=== PATIENT | male | born 1945 | race Caucasian/White ===

== ENCOUNTER 2016-04-28 14:28 | Emergency (ER) | payer MEDICARE, OTHER ==
[2016-04-28] MEDS ORDERED: IPRATROPIUM BROMIDE NEBS 0.5 MG/2.5 ML VIAL NEB ONE (15:11)
[2016-04-28] MEDS ORDERED: LEVALBUTEROL NEBS 1.25 MG/3 ML VIAL NEB ONE (15:11)
[2016-04-28 15:19] VITALS: TEMP 97.1
[2016-04-28] MEDS ORDERED: FUROSEMIDE INJ 40 MG/4 ML VIAL IV ONE (15:28)
--- NOTE | 2016-04-28 15:55 | RAD ---
EXAM DESCRIPTION: XR CHEST 1 VIEW CLINICAL HISTORY: sob COMPARISON: None available TECHNIQUE: AP portable chest FINDINGS: The patient is post sternotomy. Mild cardiomegaly is evident. Diffuse interstitial lung disease is observed. I suspect a portion of what is seen is chronic in nature. There may be superimposed acute parenchymal pathology. Direct comparison with an old film would prove useful. No evidence of a pleural effusion is seen. IMPRESSION: Diffuse interstitial lung disease is observed. Some of what is seen may be chronic in nature. Direct comparison with an old film would prove useful to evaluate for acute parenchymal pathology. Electronically signed by: Jacob Faye MD 04/28/2016 15:54
[2016-04-28] MEDS ORDERED: NITROGLYCERIN/D5W IV 250 ML IVS ONE (16:24)
[2016-04-28] MEDS ORDERED: ASPIRIN TABLET 325 MG TAB PO ONE (16:30)
--- NOTE | 2016-04-28 16:38 | ED.PDOC ---
History of Present Illness - General Chief Complaint: Respiratory Problem Stated Complaint: Shortness of breath for the past two weeks Time Seen by Provider: 04/28/16 14:52 Source: patient Exam Limitations: no limitations - History of Present Illness Initial Comments: the patient is a 70-year-old male presenting to emergency room secondary to progressive shortness of breath for the last 2 weeks. He has had a mildly productive sputum. He has not noticed any lower extremity swelling but there is possibly some increased abdominal girth. He does get more short of breath with lying back. He has felt no chest pain or palpitations. No syncope but he has had a couple of episodes of near syncope. No focal neurological changes. No vomiting. No diarrhea. He does have a significant cardiac history and has had a 3 vessel CABG in the past. He is followed by Dr. Castro. When comparing the EKG today to EKG from 2013, he has persistent right bundle branch block and left anterior fascicular blocks but both are a little more widened than they used to be. Additionally he has ventricular bigeminy. The patient is in significant respiratory distress upon arrival.upon additional questioning, he feels as if his Lasix is not diuresing him as well as it used to. Timing/Duration: 1 week Severity: severe Improving Factors: immobilization Worsening Factors: movement Associated Symptoms: cough, malaise, shortness of breath, weakness Allergies/Adverse Reactions: Allergies NO KNOWN ALLERGY Allergy (Verified 04/28/16 14:57) Review of Systems - Review of Systems Constitutional: States: malaise, weakness EENTM: States: no symptoms reported Respiratory: States: cough, orthopnea, short of breath, wheezing Cardiology: States: no symptoms reported Gastrointestinal/Abdominal: States: no symptoms reported Genitourinary: States: no symptoms reported Musculoskeletal: States: no symptoms reported Skin: States: no symptoms reported Neurological: States: weakness - generalized All other Systems: No Change from Baseline Past Medical History (General) - Patient Medical History Hx Stroke: No Hx Asthma: No Hx of COPD: Yes Hx Cardiac Disorders: Yes - History of CABG Hx Congestive Heart Failure: No Hx Hypertension: Yes Hx Diabetes: No Hx MRSA: No Surgical History: coronary bypass surgery - Vaccination History Hx Influenza Vaccination: Yes Hx Pneumococcal Vaccination: Yes - Social History Hx Tobacco Use: Yes Hx Chewing Tobacco Use: No Hx Alcohol Use: Yes - 2 drinks every evening Physical Exam - Physical Exam General Appearance: Alert, Obvious distress Eye Exam: bilateral normal Ears, Nose, Throat: normal ENT inspection, normal pharynx Neck: non-tender, full range of motion, supple Respiratory: chest non-tender, respiratory distress, decreased breath sounds, accessory muscle use, rales, rhonchi, wheezing - mild and scattered Cardiovascular/Chest: normal peripheral pulses, no edema, other - telemetry monitoring shows bigeminy. Pulses consistent with one strong pulse beat followed by one very weak 1. 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 His appears to be due to a CHF exacerbation likely related to a poorly perfusing arrhythmia in the form of ventricular bigeminy. The patient has been given a dose of IV Lasix and has started to diurese. His respiratory distress has been aided greatly by the addition of oxygen. He is currently on 50% FiO2. He is also receiving a low-flow nitroglycerin drip to help reduce hypertension. The patient is being transferred for higher level of care and cardiac evaluation. He is a patient of Dr. Liu. Critical care time spent on the patient 50 minutes excluding other billable procedures. - Results/Orders Results/Orders: Vital Signs - 24 hr 04/28/16 04/28/16 15:00 15:10 Temperature 97.1 F L Pulse Rate 54 L 93 H Pulse Rate [ 54 L Apical] Respiratory 24 20 Rate Blood Pressure 143/88 [Right Arm] O2 Sat by Pulse 72 L 93 L Oximetry 04/28/16 14:53 Telemetry .CONTINUOUS INFLUENZA A & B ANTIGEN negative 04/28/16 14:58 ABG [Arterial Blood Gas] Stat on 40% FiO2, the PaCO2 is 44 and the PaO2 is 67. PH is 7.4. 04/28/16 16:15 EKG STAT EKG shows ventricular bigeminy and widening of the QRS complexes on his normal beats consistent with his bundle branch blocks. In comparison with EKG from [address] there are no acute ST segment changes in comparison. 04/28/16 16:24 Nitroglycerin/D5w IV 250 ml IVS ONCE 04/29/16 09:00 Oxygen Daily Laboratory Results - last 24 hr 04/28/16 14:55 WBC 10.4 RBC 5.20 Hgb 15.9 Hct 47.4 MCV 91.2 MCH 30.7 MCHC 33.6 RDW 15.1 H Plt Count 239 MPV 7.6 Absolute Neuts (auto) 7.30 H Absolute Lymphs (auto) 1.90 Absolute Monos (auto) 1.10 H Absolute Eos (auto) 0.10 Absolute Basos (auto) 0.10 Neutrophils % 69.7 Lymphocytes % 18.5 L Monocytes % 10.5 H Eosinophils % 0.6 L Basophils % 0.7 PT 13.6 H INR 1.210 PTT (SP) 34.7 D-Dimer, Quantitative < 230 Sodium 136 Potassium 3.5 L Chloride 102 Carbon Dioxide 28 Anion Gap 9.5 L BUN 21 H Creatinine 0.81 BUN/Creatinine Ratio 25.9 H Random Glucose 125 H Serum Osmolality 276.4 Calcium 9.2 Magnesium 2.1 Total Bilirubin 4.0 H* AST 21 ALT 14 Alkaline Phosphatase 94 Creatine Kinase 59 CK-MB (CK-2) 3.9 CK-MB (CK-2) % Not Reportable Troponin I 0.05 B-Natriuretic Peptide 1630.0 H* Serum Total Protein 6.9 Albumin 4.0 Globulin 2.9 Albumin/Globulin Ratio 1.4 TSH 2.69 chest x-ray is consistent with congestive heart failure. No overt pneumonia. Departure - Departure Clinical Impression: Congestive heart failure Qualifiers: Congestive heart failure type: unspecified congestive heart failure type Congestive heart failure chronicity: acute Qualifier Code: (I50.9) Heart failure , unspecified Disposition: Transfer to Hospital Departure Forms: ED Discharge - Pt. Copy, Patient Portal Self Enrollment Transfer to Outside Facility - Transfer Information Accepting Provider:: dr villatoro Accepting Facility: [facility] [place] Reason for Transfer: required specialist not available
[2016-04-28] MEDS ORDERED: SODIUM CHLORIDE 0.9% 500ML 500 ML ONE (16:53)
[2016-04-28] MEDS ORDERED: SODIUM CHLORIDE 0.9% 500ML 500 ML IVS PRN (16:54)
[2016-04-28 19:26] VITALS: O2SAT 93
[2016-04-28 19:32] VITALS: BP 147/74
== END 2016-04-28 17:52 | disposition short-term general hospital (02) ==
LOC: ER 14:28
DX: I11.0 Hypertensive heart disease with heart failure (principal); I50.9 Heart failure, unspecified; I45.2 Bifascicular block; Z95.1 Presence of aortocoronary bypass graft; J44.9 Chronic obstructive pulmonary disease, unspecified; Z87.891 Personal history of nicotine dependence
CPT/HCPCS: 36415; 36600; 71010; 80053; 82550; 82553; 82803; 82805; 83735; 83880; 84443; 84484; 85025; 85379; 85610; 85730; 93005; 94640; J1940; J7040; J7614

== ENCOUNTER → 2016-05-12 | Outpatient (CLI) | payer MEDICARE, OTHER | END | disposition home or self-care (01) | LOC: LAB.O 14:20 | PROVIDERS: ATTEND Internal Medicine Interventional Cardiology | DX: I42.9 Cardiomyopathy, unspecified (principal) ==

== ENCOUNTER 2016-07-20 09:21 | Inpatient (IN) | payer MEDICARE, OTHER ==
[2016-07-20] MEDS ORDERED: ACETAMINOPHEN 325 MG TAB PO ONE (09:47)
[2016-07-20] MEDS ORDERED: CEFEPIME 2 GM in SODIUM CHL 0.9% 50ML MIN-BAG+ 50 ML IVPB ONE (09:47)
[2016-07-20] MEDS ORDERED: IPRATROPIUM/ALBUTEROL 3 ML VIAL NEB ONE (09:48)
[2016-07-20] MEDS ORDERED: SODIUM CHL 0.9% 50ML MIN-BAG+ 50 ML IVPB ONE ×2 (09:56→20:25)
[2016-07-20] MEDS ORDERED: CEFEPIME 2 GM VIAL IVPB ONE ×2 (09:56→20:25)
--- NOTE | 2016-07-20 10:14 | RAD ---
EXAM DESCRIPTION: Chest,2 Views CLINICAL HISTORY: sob, productive sputum, copd, chf COMPARISON: April 28, 2016 FINDINGS: Again seen are postoperative changes in the mediastinum. The heart is at the upper limits of normal size. There is a small left-sided pleural effusion with a questionable tiny right-sided effusion. The bronchovascular markings are indistinct. Interstitial and patchy alveolar opacity is noted in the left lung base. There are degenerative changes in the thoracic spine at several levels. No vertebral body fracture or subluxation. No pneumothorax. IMPRESSION: Moderate CHF including small left-sided and possible tiny right-sided pleural effusions. Infection is considered less likely. Electronically signed by: Abelardo Lawler MD 07/20/2016 10:14 AM CDT
--- NOTE | 2016-07-20 10:59 | ED.PDOC ---
History of Present Illness - General Chief Complaint: Respiratory Problem Stated Complaint: cough, shortness of breath Time Seen by Provider: 07/20/16 09:30 Source: patient Exam Limitations: no limitations - History of Present Illness Initial Comments: the patient is a 71-year-old male presenting to the emergency room secondary to a cough with productive sputum along with fevers and chills and some increasing shortness of breath over the last 72 hours. The patient does have a history of congestive heart failure and COPD and does normally wear supplemental oxygen at least part of the day. He has had to increase his oxygen use over the last 72 hours due to shortness of breath. No fluid retention and is actually lost a little bit of weight over the last few days. No syncopal or near syncope. No chest pain. No rash. No sore throat or runny nose. Sputum is frankly purulent. The patient was just hospitalized at [facility] one month ago for pneumonia with significant associated arrhythmia. 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 He has been doing well since that time up until 3 days ago. Severity: moderate Improving Factors: nothing Worsening Factors: nothing Associated Symptoms: cough, diaphoresis, fever/chills, malaise, shortness of breath Allergies/Adverse Reactions: Allergies NO KNOWN ALLERGY Allergy (Verified 04/28/16 14:57) Home Medications: Ambulatory Orders Aspirin [Aspirin Adult Low Dose] 81 mg PO DAILY 07/20/16 Atorvastatin Calcium [Lipitor] 40 mg PO DAILY 07/20/16 Carvedilol [Coreg] 3.125 mg PO BID 07/20/16 Furosemide [Lasix] 40 mg PO DAILY 07/20/16 Lisinopril 5 mg PO DAILY 07/20/16 Potassium Chloride [K-Tab] 20 meq PO DAILY 07/20/16 Tamsulosin HCl [Flomax] 0.4 mg PO DAILY 07/20/16 Tiotropium Piggott Monohydrate [Spiriva Handihaler] 1 puff IN BEDTIME 07/20/16 Tiotropium Piggott-Olodaterol [Stiolto Respimat 2.5-2.5 Mcg/Act] 2.5 mcg IN QAM 07/20/16 Review of Systems - Review of Systems Constitutional: States: diaphoresis, fever, malaise EENTM: States: no symptoms reported Respiratory: States: cough, short of breath Cardiology: States: no symptoms reported Gastrointestinal/Abdominal: States: no symptoms reported Genitourinary: States: no symptoms reported Musculoskeletal: States: no symptoms reported Skin: States: no symptoms reported Neurological: States: no symptoms reported Endocrine: States: no symptoms reported All other Systems: No Change from Baseline Past Medical History (General) - Patient Medical History Hx Stroke: No Hx Asthma: No Hx of COPD: Yes - Dr. Ring Hx Cardiac Disorders: Yes - History of CABG 2013 Hx Congestive Heart Failure: Yes - Dr. Liu Hx Hypertension: Yes Hx Diabetes: No Hx MRSA: No Surgical History: coronary bypass surgery - Vaccination History Hx Influenza Vaccination: Yes Hx Pneumococcal Vaccination: Yes - Social History Hx Tobacco Use: Yes Hx Chewing Tobacco Use: No Hx Alcohol Use: Yes - 2 drinks every evening Family Medical History - Family History Mother Family History: No Known Physical Exam - Physical Exam General Appearance: Alert, Comfortable, No apparent distress Eye Exam: bilateral normal Ears, Nose, Throat: hearing grossly normal, normal ENT inspection, normal pharynx Neck: non-tender, full range of motion, supple Respiratory: chest non-tender, no respiratory distress, other - mild accessory muscle use. Increased rails to the left lung base. Mild scattered rhonchi. Few scattered wheezes. Cardiovascular/Chest: normal peripheral pulses, regular rate, rhythm, no edema Peripheral Pulses: radial,right: 2+, radial,left: 2+, dorsalis pedis,right: 2+, dorsalis pedis,left: 2+ Gastrointestinal/Abdominal: non tender, soft Rectal Exam: deferred Back Exam: normal inspection, no CVA tenderness, no vertebral tenderness Extremity: normal range of motion, non-tender, normal inspection, no pedal edema , normal capillary refill Neurologic: alert, normal mood/affect, oriented x 3 Skin Exam: normal color Comments: Vital Signs - 24 hr 07/20/16 07/20/16 07/20/16 09:25 09:43 09:50 Pulse Rate Pulse Rate [ APICAL] Respiratory 20 Rate Blood Pressure 131/73 [RIGHT BRACHIAL ] O2 Sat by Pulse 91 L 93 L Oximetry 07/20/16 07/20/16 10:10 10:15 Pulse Rate 20 L Pulse Rate [ 88 APICAL] Respiratory 104 H 20 Rate Blood Pressure 125/86 [RIGHT BRACHIAL ] O2 Sat by Pulse 95 92 L Oximetry Progress - Progress Progress: 07/20/16 11:02 the patient is a 71-year-old male presenting to the emergency room secondary to what appears to be a COPD exacerbation with likely left lower lobe developing pneumonia. The patient is going to be placed on cefepime here in the emergency room and may have azithromycin added by the flame hardener. Blood and sputum cultures have been performed. He has received a nebulizer treatment. He has not yet received any IV steroids. He is requiring increased levels of oxygen supplementation to maintain oxygen saturations greater than 90%. He will bear careful monitoring. Admit for higher level of care in this high-risk patient. - Results/Orders Results/Orders: Laboratory Tests 07/20/16 09:49 WBC 13.0 H RBC 4.85 Hgb 15.2 Hct 44.5 MCV 91.9 MCH 31.4 H MCHC 34.2 RDW 16.2 H Plt Count 243 MPV 7.6 Absolute Neuts (auto) 10.40 H Absolute Lymphs (auto) 1.00 Absolute Monos (auto) 1.50 H Absolute Eos (auto) 0.10 Absolute Basos (auto) 0.10 Neutrophils % 79.9 H Lymphocytes % 7.7 L Monocytes % 11.2 H Eosinophils % 0.8 L Basophils % 0.4 PT 13.5 H INR 1.200 PTT (SP) 33.1 D-Dimer, Quantitative < 200 Sodium 134 L Potassium 4.0 Chloride 96 L Carbon Dioxide 31 Anion Gap 11.0 L BUN 11 Creatinine 0.65 BUN/Creatinine Ratio 16.9 Random Glucose 124 H Serum Osmolality 269.1 L Calcium 9.1 Magnesium 2.0 Total Bilirubin 1.6 H AST 33 ALT 37 Alkaline Phosphatase 92 Creatine Kinase 70 CK-MB (CK-2) 2.6 CK-MB (CK-2) % Not Reportable Troponin I 0.04 B-Natriuretic Peptide 572.0 H* Serum Total Protein 7.8 Albumin 3.8 Globulin 4.0 H Albumin/Globulin Ratio 1.0 L chest x-ray shows small bilateral pleural effusions. There is some cardiomegaly. There are changes consistent with COPD. There appears to be a small left lower lobe infiltrate. EKG is consistent with previous EKGs indicating right and anterior left bundle-branch blocks with a normal sinus rhythm. Departure - Departure Clinical Impression: COPD with acute exacerbation Pneumonia Qualifiers: Pneumonia type: due to unspecified organism Laterality: left Lung location: lower lobe of lung Qualifier Code: (J18.9) Pneumonia, unspecified organism Disposition: Admit Patient Home Medications: Ambulatory Orders Aspirin [Aspirin Adult Low Dose] 81 mg PO DAILY 07/20/16 Atorvastatin Calcium [Lipitor] 40 mg PO DAILY 07/20/16 Carvedilol [Coreg] 3.125 mg PO BID 07/20/16 Furosemide [Lasix] 40 mg PO DAILY 07/20/16 Lisinopril 5 mg PO DAILY 07/20/16 Potassium Chloride [K-Tab] 20 meq PO DAILY 07/20/16 Tamsulosin HCl [Flomax] 0.4 mg PO DAILY 07/20/16 Tiotropium Piggott Monohydrate [Spiriva Handihaler] 1 puff IN BEDTIME 07/20/16 Tiotropium Piggott-Olodaterol [Stiolto Respimat 2.5-2.5 Mcg/Act] 2.5 mcg IN QAM 07/20/16 Decision To Admit - Decistion To Admit Decision to Admit Reason: Medical Nature Decision to Admit Date: 07/20/16 Decision to Admit Time: 11:04
--- NOTE | 2016-07-20 11:17 | HP ---
HISTORY OF PRESENT ILLNESS: This 71 year-old white male is admitted to the hospital from the Emergency Room. He comes to the Emergency Room from home because of worsening shortness of breath, cough, greenish sputum production with fever and chills getting worse for the last 6 days. He has difficulty exerting himself minimally because of shortness of breath. No nausea, vomiting or diarrhea. He has been ill with pneumonia back in April requiring a trip to [place] for specific treatment. He has had a history of an irregular rhythm being followed by Dr. Liu, Capacitor Pack Press Operator, and also sees the customer contact specialist in [place] and is followed by Dr. Livingston in the [facility]. He is on home oxygen. When he arrived in the Emergency Room, his pulse oximetry on room air was 77% suggesting significant hypoxia and respiratory distress. He is admitted to the hospital for bronchial hygiene, specific parenteral treatment and followup because of what appears to be an early left lower lobe infiltrative pneumonia process associated with congestive heart failure. PAST MEDICAL HISTORY: 1. Congestive heart failure. 2. Chronic obstructive pulmonary disease. 3. Rhythm problems with his heart. PAST SURGICAL HISTORY: 1. Coronary artery bypass grafting in June of 2013. CURRENT MEDICATIONS: Please refer to nurses' notes for an up to date list of verified home medicines. ALLERGIES: NONE. FAMILY HISTORY: Positive for renal failure in the father. 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 He stopped smoking about 4 months ago after many years of smoking. REVIEW OF SYSTEMS: Slight weight change down recently. Fever and chills evident with the current illness. HEENT: No hearing or vision disturbances. LUNGS: Significant cough with sputum production having difficulty clearing the secretions at times. Very short of breath upon exertion. No hemoptysis. CARDIOVASCULAR: No significant chest pains or pleurisy pains. No history of irregular pulse recently. ABDOMEN: Decreased appetite recently with some weight loss. No nausea, vomiting , diarrhea or blood in the stools. GENITOURINARY: No dysuria. EXTREMITIES: No significant pedal edema. NEUROLOGIC: No focal neurologic deficits. No headaches. The patient is otherwise awake, alert and communicative. PHYSICAL EXAMINATION: VITAL SIGNS: On admission, afebrile, pulse ranges between 87 and 102, blood pressure 126/72, pulse oximetry initially noted down to 77% in the ambulance and was 91% on 3 liters nasal cannula in the Emergency Room. GENERAL: The patient is awake, alert and oriented. He breathes better sitting up on the side of the bed with his hands on the edge of the bed with his shoulders elevated in a typical tripod position. Weight is 81.9 kilos. HEENT: Unremarkable. NECK: Supple. No carotid bruits noted. CHEST: Lungs have markedly diminished breath sounds with a few rhonchi more prominent on the left base versus the right posteriorly. CARDIOVASCULAR: Heart tones otherwise fairly regular with a controlled rhythm at this time. ABDOMEN: Soft. No significant organomegaly, masses or tenderness. EXTREMITIES: Only a trace of edema and muscle tone is fairly good. NEUROLOGIC: No focal neurological deficits. The patient is awake, alert, oriented and communicative. LABORATORY: White count is elevated at 13,000 with 80% neutrophils, hemoglobin 15.2, INR 1.2, D-dimer under 200. Chemistries show sodium 134, potassium 4, CO2 31, BUN 11, creatinine 0.65, glucose 124, calcium 9.1, magnesium 2, bilirubin 1.8. Other liver enzymes normal. Troponin is 0.04. Beta natriuretic peptide 572. Albumin 3.8. Blood culture and sputum culture pending. Influenza A and B negative. Chest x-ray does show evidence of some pulmonary congestion as well as a left lower lobe early interstitial and patchy alveolar opacity. ASSESSMENT: 1. Probable acute left lower lobe pneumonia community acquired, cultures pending being treated with combined Cefepime and Azithromycin. 2. Chronic obstructive pulmonary disease with an acute exacerbation requiring pulmonary hygiene, oxygen titrated therapy, percussion, flutter valve and bronchodilator therapy. 3. Congestive heart failure with elevated beta natriuretic peptide and no information on echocardiography as to etiology of the congestive heart failure. 4. History of cardiac rhythm disturbances being treated by Dr. Liu. 5. Acute bronchitis with purulent sputum noted and cultures pending. 6. Leukocytosis. PLAN: The patient is admitted to the hospital for initiation of vigorous treatment for the underlying early infectious condition as well as emphysema exacerbation. The patient has stopped smoking completely apparently 4 months ago and will require ongoing support because of significant respiratory impact of years of smoking. Started on Cefepime plus Azithromycin and will be followed closely with pulmonary bronchial hygiene with flutter valve as well as percussion and await culture results. Close followup necessary with Dr. Liu and Dr. Livingston with pulmonary service depending upon how the patient is progressing. #[id number] [facility]
[2016-07-20] MEDS ORDERED: LEVALBUTEROL NEBS 1.25 MG/3 ML VIAL INH PRN (11:50)
[2016-07-20] MEDS ORDERED: HYDROcodone 5MG/APAP 325MG 1 EA TAB PO PRN (11:59)
[2016-07-20] MEDS ORDERED: MAGNESIUM HYDROXIDE 30 ML UD PO PRN (11:59)
[2016-07-20] MEDS ORDERED: IBUPROFEN 400 MG TAB PO PRN (11:59)
[2016-07-20] MEDS ORDERED: IV SET AND CAP CHANGE INJ INJ SCH (12:00)
[2016-07-20] MEDS: AZITHROMYCIN 250 MG TAB PO SCH (12:54)
[2016-07-20] MEDS: IPRATROPIUM/ALBUTEROL 3 ML VIAL INH SCH ×3 (13:43→20:46)
[2016-07-20] MEDS ORDERED: BENZONATATE PERLES 100 MG CAP PO PRN (15:55)
[2016-07-20] MEDS: FUROSEMIDE INJ 20 MG/2 ML VIAL IV SCH (19:18)
[2016-07-20] MEDS: CARVEDILOL 3.125 MG TAB PO SCH (21:22)
[2016-07-20] MEDS: POTASSIUM CHLORIDE 10 MEQ TAB PO SCH (21:22)
[2016-07-20] MEDS: CEFEPIME 2 GM in SODIUM CHL 0.9% 50ML MIN-BAG+ 50 ML IVPB SCH (22:14)
[2016-07-21] MEDS ORDERED: OMEPRAZOLE CAP 20 MG CAP ONE (04:08)
[2016-07-21] MEDS: OMEPRAZOLE CAP 20 MG CAP PO SCH (06:20)
[2016-07-21] MEDS ORDERED: SODIUM CHL 0.9% 50ML MIN-BAG+ 50 ML IVPB ONE ×2 (07:06→19:57)
[2016-07-21] MEDS ORDERED: CEFEPIME 2 GM VIAL IVPB ONE ×2 (07:07→19:58)
--- NOTE | 2016-07-21 07:43 | RAD ---
EXAM DESCRIPTION: Chest,2 Views CLINICAL HISTORY: Pneumonia COMPARISON: July 20, 2016 and April 28, 2016 FINDINGS: Again seen are postoperative changes in the mediastinum. The heart is at the upper limits of normal size, stable. Blunting of the left costophrenic angle is unchanged from prior exams. There is chronic bibasilar interstitial prominence likely representing subsegmental atelectasis, scarring or fibrosis. There is no new airspace consolidation or significant right-sided pleural effusion. The lung volumes are at the upper limits of normal range. No fracture or pneumothorax. IMPRESSION: Bibasilar interstitial prominence, unchanged from prior studies. Findings are most consistent with chronic changes such as subsegmental atelectasis, scarring and/or fibrosis. No new abnormality or other significant interval change. Possible tiny left-sided pleural effusion versus pleural thickening or scarring. Electronically signed by: Abelardo Lawler MD 07/21/2016 7:42 AM CDT
[2016-07-21] MEDS: POTASSIUM CHLORIDE 10 MEQ TAB PO SCH ×2 (08:33→17:40)
[2016-07-21] MEDS: CARVEDILOL 3.125 MG TAB PO SCH ×2 (08:33→20:52)
[2016-07-21] MEDS: FUROSEMIDE INJ 20 MG/2 ML VIAL IV SCH ×2 (08:33→17:40)
[2016-07-21] MEDS: ASPIRIN EC 81 MG TAB PO SCH (08:33)
[2016-07-21] MEDS ORDERED: LISINOPRIL 5 MG TAB PO SCH (09:00)
[2016-07-21] MEDS ORDERED: NON-FORMULARY MEDICATION 1 EA MIS (Tiotropium Bromide-Olodaterol [Stiolto Respimat 2.5-2.5 IN SCH (09:00)
[2016-07-21] MEDS ORDERED: TAMSULOSIN 0.4 MG CAP PO SCH (09:00)
[2016-07-21] MEDS: IPRATROPIUM/ALBUTEROL 3 ML VIAL INH SCH ×4 (09:00→20:32)
[2016-07-21] MEDS ORDERED: methylPREDNISolone SODIUM SUC 40 MG/ML VIAL IV ONE (09:07)
[2016-07-21] MEDS: CEFEPIME 2 GM in SODIUM CHL 0.9% 50ML MIN-BAG+ 50 ML IVPB SCH ×2 (09:26→21:33)
--- NOTE | 2016-07-21 10:21 | PN ---
DATE: 07/21/16 SUBJECTIVE: The patient is lying in the bed. He had a little difficulty getting much sleep last evening, but in many ways is feeling better today. He had significant cough with sputum production during the night and that has seemed to have lessened a little bit as the day has progressed today. OBJECTIVE: VITAL SIGNS: Afebrile. Pulse 89. Blood pressure 102/65. Pulse oximetry 92% on 4.5 liters, suggesting persistence of a hypoxic condition underlying his presentation with respiratory rates of 24. Weight 82 kg. Output is noted listed at this time. GENERAL: The patient is awake and alert. In many ways, he feels a little stronger today. LUNGS: Still with significant rhonchi, more so on the left lung laterally and inferiorly than on the right. HEART: Tones are fairly normal at this time. EKG findings again show the complete right bundle and left anterior hemiblock. Sinus rhythm persists. ABDOMEN: Soft. LABORATORY: White count 10,900, which is down from 13,000 with 74% neutrophils , hemoglobin 14.4. Chemistries show potassium 3.7, BUN stable at 11, glucose 116. Repeat lab in the morning. Sputum culture showed normal rui at 24 hours even though gross appearance showed marked purulence. Blood cultures are negative. Chest x-ray shows persistence of the bibasilar interstitial prominence especially noted on the left with followup suggested. ASSESSMENT: 1. Acute left lower lobe pneumonia, community acquired, with initial cultures negative thus far and being treated with cefepime and azithromycin. Observation to continue. 2. Chronic obstructive pulmonary disease with an acute exacerbation requiring pulmonary hygiene, oxygen titrated therapy, percussion, flutter valve and bronchodilator therapy as well as corticosteroid administration. 3. Congestive heart failure with elevated beta natriuretic peptide with history of an echocardiogram not available to us at this time to suggest the etiology of the congestive heart failure. 4. History of cardiac rhythm disturbances, being treated by Dr. Liu. 5. Abnormal EKG with complete right bundle branch as well as left anterior hemiblock with normal sinus rhythm. 6. Acute bronchitis with purulent sputum with cultures negative at the present time. 7. Leukocytosis, slowly improving. 8. Mild hypokalemia. PLAN: We will continue with some corticosteroids and increased activity with ambulation study to evaluate the need of oxygen. Close followup necessary and reevaluation int he morning. #[id number] [facility]
[2016-07-21] MEDS: AZITHROMYCIN 250 MG TAB PO SCH (11:34)
[2016-07-21] MEDS ORDERED: POTASSIUM CHLORIDE 10 MEQ TAB PO ONE (13:00)
[2016-07-21] MEDS ORDERED: predniSONE 20 MG TAB PO ONE (16:00)
[2016-07-21] MEDS ORDERED: TAMSULOSIN 0.4 MG CAP ONE (19:57)
[2016-07-21] MEDS ORDERED: LISINOPRIL 5 MG TAB ONE (19:58)
[2016-07-21] MEDS: TAMSULOSIN 0.4 MG CAP PO SCH (20:51)
[2016-07-21] MEDS: LISINOPRIL 5 MG TAB PO SCH (20:52)
[2016-07-21] MEDS: SODIUM CHLORIDE 0.9% (FLUSH) 10 ML SYG IV PRN (21:33)
[2016-07-22] MEDS ORDERED: predniSONE 20 MG TAB ONE (07:06)
[2016-07-22] MEDS ORDERED: SODIUM CHL 0.9% 50ML MIN-BAG+ 50 ML IVPB ONE ×2 (07:06→19:28)
[2016-07-22] MEDS ORDERED: CEFEPIME 2 GM VIAL IVPB ONE ×2 (07:07→19:29)
[2016-07-22] MEDS: POTASSIUM CHLORIDE 10 MEQ TAB PO SCH ×2 (07:35→16:37)
[2016-07-22] MEDS: OMEPRAZOLE CAP 20 MG CAP PO SCH (08:04)
[2016-07-22] MEDS: NON-FORMULARY MEDICATION 1 EA MIS (Tiotropium Bromide-Olodaterol [Stiolto Respimat 2.5-2.5 IN SCH (08:37)
[2016-07-22] MEDS: IPRATROPIUM/ALBUTEROL 3 ML VIAL INH SCH ×4 (08:38→20:20)
[2016-07-22] MEDS: FUROSEMIDE INJ 20 MG/2 ML VIAL IV SCH ×2 (09:14→16:37)
[2016-07-22] MEDS: CARVEDILOL 3.125 MG TAB PO SCH ×2 (09:14→20:40)
[2016-07-22] MEDS: predniSONE 20 MG TAB PO SCH (09:14)
[2016-07-22] MEDS: ASPIRIN EC 81 MG TAB PO SCH (09:14)
[2016-07-22] MEDS: CEFEPIME 2 GM in SODIUM CHL 0.9% 50ML MIN-BAG+ 50 ML IVPB SCH ×2 (09:40→21:38)
[2016-07-22] MEDS: AZITHROMYCIN 250 MG TAB PO SCH (11:55)
[2016-07-22] MEDS ORDERED: POTASSIUM CHLORIDE 10 MEQ TAB PO ONE (12:00)
--- NOTE | 2016-07-22 13:43 | PN ---
DATE: 07/22/16 SUBJECTIVE: The patient is lying in the bed and states that in many ways he feels a little stronger today. He was able to ambulate with respiratory for an ambulation study. There was a discrepancy between digital versus earlobe pulse oximetry with his earlobe pulse oximetry dropping to approximately 84 with room air with a certainly level of walking and recovering fairly rapidly with oxygen supplied in the bed. His saturation dropped into the mid 70s on his digital reading, possibly suggesting some vascular occlusive disease to some of his digits. He is still coughing, but slightly less. OBJECTIVE: VITAL SIGNS: Afebrile. Blood pressure 111/73. Pulse oximetry 87% on nasal cannula with nasal cannula showing some reduction and still maintaining an adequate saturation compared to yesterday with analysis and support and reevaluation to continue. He does have oxygen at home, but will need to be on as balanced and as minimal amount of oxygen as possible to supply his needs. Described the problems of over oxygenation and CO2 retention. The patient is well versed and is ready to contribute assisting making these decisions along with Dr. Livingston's assistance. LUNGS: Some rhonchi, more so on the left than right. HEART: Tones are fairly regular. ABDOMEN: Soft. NEUROLOGIC: The patient is awake and alert. Coloration looks a little better. Voice is strong. Still with occasional cough, but not as severe as it was 2 days ago. LABORATORY: White count up to 16,600 with 88% neutrophils, possibly indicative of the corticosteroid administration, yet observation necessary with recheck tomorrow. Hemoglobin 15.6. Chemistries show potassium up to 4.4 after dropping to 3.7. BUN 16, creatinine 0.74, glucose 122. Beta natriuretic peptide is down from 572 to 519. X-ray scheduled for tomorrow. ASSESSMENT: 1. Acute left lower lobe pneumonia, community acquired, with initial cultures negative. It is of note that the sputum cultures were obtained approximately 3 minutes after the order had been written for his antibiotics to be initiated and were probably collected before the antibiotics had a chance to fully interfere even though the cultures, though purulent in appearance, were negative during the hospital stay. 2. Chronic obstructive pulmonary disease with an acute exacerbation, requiring pulmonary hygiene, oxygen titrated therapy, percussion, flutter valve and bronchodilator therapy as well as corticosteroid administration with antibiotics. 3. Congestive heart failure with elevated beta natriuretic peptide, showing slight improvement clinically and laboratory-willis. 4. History of cardiac rhythm disturbances, being treated by Dr. Liu. 5. Abnormal EKG with complete right bundle branch as well as left anterior hemiblock with normal sinus rhythm. 6. Acute bronchitis with purulent sputum with cultures negative with antibiotic treatment to continue. 7. Leukocytosis, showing slight aggravation, possibly secondary to steroid administration. 8. Mild hypokalemia, showing improvement. PLAN: The patient will continue with increased activity level as tolerated with a repeat ambulation study in the morning to compare his physiologic improvement and hopefully will be able to document so. Continue with parenteral antibiotic for a third day of treatment and consider oral therapy as of tomorrow if stable. 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 He has home oxygen, which will need to be continued even on a regular basis now where before it was on a p.r.n. basis. We will determine his needs for oxygen hopefully based on the ambulation study in the morning prior to his discharge. Respiratory is notified to try to do the ambulation study early in the morning so it will be available so decisions can be made as to the level of oxygenation to be suggested. He will have followup with Dr. Livingston this next Wednesday in the clinic or when opening dose arise. He will continue on prednisone 20 mg to be tapered under Dr. Livingston's direction from the clinic. He may continue the azithromycin orally for at least another 4 days and also consider a third generation cephalosporin such as Omnicef 300 mg b.i.d. at the time of discharge. Further clinical decisions will be made in the morning with Casey Ramirez as his future course of treatment is matured. #[id number] [facility]
[2016-07-22] MEDS: TAMSULOSIN 0.4 MG CAP PO SCH (20:39)
[2016-07-22] MEDS: LISINOPRIL 5 MG TAB PO SCH (20:40)
[2016-07-22] MEDS: SODIUM CHLORIDE 0.9% (FLUSH) 10 ML SYG IV PRN (21:39)
[2016-07-23] MEDS: OMEPRAZOLE CAP 20 MG CAP PO SCH (06:02)
[2016-07-23 06:30] VITALS: TEMP 97.7
--- NOTE | 2016-07-23 06:58 | RAD ---
EXAM: Two view chest. INDICATION: Chest pain. COMPARISON: Chest x-ray: 04/28/2016. FINDINGS: Cardiac silhouette: Unremarkable. Rajni: Unremarkable. Lobar consolidation: None. Pleural effusion: There is blunting of the left costophrenic angle, likely due to a small effusion or pleural thickening. Pneumothorax: None. Other: Again noted are interstitial opacities along the mid lungs, likely chronic. Bones: Unremarkable. Other: Median sternotomy wires are noted IMPRESSION: No significant change compared to the prior exam. Prominent interstitial markings along the mid lungs, likely chronic. Electronically signed by: Adan Zheng MD 07/23/2016 6:56 AM CDT
[2016-07-23] MEDS: NON-FORMULARY MEDICATION 1 EA MIS (Tiotropium Bromide-Olodaterol [Stiolto Respimat 2.5-2.5 IN SCH (07:25)
[2016-07-23] MEDS: POTASSIUM CHLORIDE 10 MEQ TAB PO SCH (07:56)
[2016-07-23] MEDS: IPRATROPIUM/ALBUTEROL 3 ML VIAL INH SCH (08:12)
[2016-07-23] MEDS: ASPIRIN EC 81 MG TAB PO SCH (08:44)
[2016-07-23] MEDS: predniSONE 20 MG TAB PO SCH (08:44)
[2016-07-23] MEDS: FUROSEMIDE INJ 20 MG/2 ML VIAL IV SCH (08:44)
[2016-07-23] MEDS: CARVEDILOL 3.125 MG TAB PO SCH (08:44)
[2016-07-23 08:57] VITALS: BP 116/72; O2SAT 86
--- NOTE | 2016-07-23 21:18 | DS ---
SUPERVISING PHYSICIAN: Erick Cr M.D. DISCHARGE DIAGNOSIS: 1. Acute left lower lobe pneumonia, community acquired, with sputum cultures being negative. 2. Chronic obstructive pulmonary disease with an acute exacerbation, requiring pulmonary hygiene, oxygen therapy and aggressive bronchodilator therapy as well as corticosteroid administration with antibiotics showing improvement prior to discharge. 3. Congestive heart failure with elevated beta natriuretic peptide on admission showing some improvement clinically as well as decrease in laboratory prior to discharge. 4. History of cardiac rhythm disturbances that are being followed by Dr. Liu. 5. Abnormal EKG with complete right bundle branch as well as left anterior hemiblock with normal sinus again being followed by Dr. Liu. 6. Acute bronchitis with purulent sputum with cultures remaining with no growth prior to discharge with parenteral antibiotic therapy continued through admission. 7. Leukocytosis with being persistent as the patient was on corticosteroids. 8. Mild hypokalemia, improved with therapy. HISTORY OF PRESENT ILLNESS: Mr. Marcano is a 71 year-old male patient of Dr. Livingston's that was admitted to the hospital from the Emergency Room. He presented to the Emergency Room on date of admission from home due to worsening shortness of breath, cough with greenish sputum production with fever and chills that had been worsening over 6 days prior to admission. He had had difficulty exerting himself minimally because of shortness of breath. He denied any nausea, vomiting or diarrhea. He has been ill with pneumonia back in April of 2016 requiring a trip to [place]. He has had a history of an irregular rhythm in regard to heart rate which is followed by Dr. Liu, [employer], and also sees the pharmacy clinical specialist in [place] and is followed by Dr. Livingston in the [facility] clinic. He does wear chronic O2 at home. When he arrived in the Emergency Room, his pulse oximetry showed he had an O2 saturation of 77% suggesting significant hypoxia and respiratory distress. He was admitted to the hospital for bronchial hygiene, specific parenteral antibiotic treatment and followup which appeared to be left lower lobe infiltrative pneumonia process associated with congestive heart failure likely community acquired. LABORATORY STUDIES: Initial white count was 13.0, it did go up to a maximum of 16.6 but it decreased to 13.3 at time of discharge. It was noted that the patient was on corticosteroids. Hemoglobin and hematocrit were stable and at discharge was 14.5 and 44.7, platelet count 281,000. Differential did show a left shift. Coagulation studies showed PT 13.5, PTT 33.1, D-dimer is less than 200. Chemistries show sodium 134 initially, at discharge was persistent at 134 , potassium was 4.4 at discharge, BUN and creatinine were within normal limits with BUN at discharge of 16, creatinine 0.74, calcium 9.7. He had a slightly elevated bilirubin of 1.6, otherwise liver functions showed to be within normal limits. He had 1 troponin that was 0.04. He did have a BNP of 572 initially and at discharge was 519. MICROBIOLOGY: Final sputum culture at 48 hours showed normal rui. He had a nasal swab for Influenza A by PCR which showed to be negative for both A and B. He had 2 sets of blood cultures that showed no growth at 3 days. RADIOLOGY: Chest x-ray in the Emergency Department prior to admission showed a moderate congestive heart failure including a small right sided possible tiny right sided pleural effusion. This was followed-up with a chest x-ray on and again per radiology interpretation noted bibasilar interstitial prominence unchanged from previous studies with possible tiny left sided pleural effusion versus pleural thickening or scarring and final chest x-ray was performed on date of discharge and per radiology interpretation showed no significant change compared to previous exams. Again there is noted prominent interstitial marking along the mid lungs which are felt to be chronic. HOSPITAL COURSE: Mr. Marcano was admitted from the Emergency Room to the Medical/ Surgical floor in stable condition as noted in the History of Present Illness for underlying pneumonia involving the left lower lobe. He was started on antibiotics parenterally that included Rocephin and Azithromycin. He clinically improved as well as he was on corticosteroids and aggressive pulmonary hygiene. He did require oxygen but he does wear chronic O2 at home. He had multiple ambulatory studies that showed he had low saturations during ambulation, but again he does wear oxygen at home. He clinically had shown improvement and was felt well enough to be discharged to continue with outpatient treatment plan. PLAN: The patient was discharged on 07/23/[address] Livingston in close clinical setting with appointment on 07/29/16 at 11:00 AM. He was to resume his home medications as previously instructed and to start new medications to include his antibiotics as directed. He was to wear his oxygen at home as previously instructed and to increase his activities as tolerated. He was encouraged to return to the hospital should he have any failure in his condition to improve or any worsening of those conditions. He was discharged with new prescriptions to include: 1. Albuterol sulfate nebulizers 2.5 mg per 3 mL every 4 hours as needed, #30. 2. Azithromycin 500 mg daily, #2. 3. Tessalon Perles 100 mg 3 times a day as needed, #15. 4. Omnicef 300 mg twice daily, #12. 5. Prilosec 20 mg daily, #30. 6. Prednisone 20 mg daily, #7. Diet at discharge is to resume usual diet. Activity is to increase activity as tolerated and continue with incentive spirometry. Condition at discharge was stable. [facility][id number] [facility]
== END 2016-07-23 09:50 | disposition home or self-care (01) | DRG 190 ==
LOC: ER 09:21 → MS 11:15
PROVIDERS: ADMIT Emergency Medicine; ATTEND Nurse Practitioner Family
DX: J44.0 Chronic obstructive pulmonary disease with (acute) lower respiratory infection (principal); J18.9 Pneumonia, unspecified organism; J44.1 Chronic obstructive pulmonary disease with (acute) exacerbation; R09.02 Hypoxemia; I11.0 Hypertensive heart disease with heart failure; I50.9 Heart failure, unspecified; I45.19 Other right bundle-branch block; J20.9 Acute bronchitis, unspecified; E87.6 Hypokalemia; D72.829 Elevated white blood cell count, unspecified; T38.0X5A Adverse effect of glucocorticoids and synthetic analogues, initial encounter; Y92.230 Patient room in hospital as the place of occurrence of the external cause; Z99.81 Dependence on supplemental oxygen; Z95.1 Presence of aortocoronary bypass graft; Z87.891 Personal history of nicotine dependence; Z79.82 Long term (current) use of aspirin; Z79.899 Other long term (current) drug therapy

== ENCOUNTER 2017-02-27 18:44 | Inpatient (IN) | payer MEDICARE, OTHER ==
[2017-02-27] MEDS ORDERED: IPRATROPIUM/ALBUTEROL 3 ML VIAL NEB ONE (19:06)
--- NOTE | 2017-02-27 19:09 | ED.PDOC ---
History of Present Illness - General Chief Complaint: Respiratory Problem Stated Complaint: SOB, low O2 sat Time Seen by Provider: 02/27/17 18:57 Source: patient, RN notes reviewed, Vital Signs reviewed Exam Limitations: no limitations - History of Present Illness Initial Comments: Patient presents to the ER with worsening SOB that started 2 days ago. + cough. + chills. Increased need for oxygen at home. Has done 4 nebulizer treatments today. Helps his SOB but not helping for as long with each treatment. Yellow phlegm. Timing/Duration: days - 2 Severity: moderate Activities at Onset: rest Possible Cause: occasional episodes - Thinks he has pneumonia again. Hx of COPD Improving Factors: medication Worsening Factors: movement Associated Symptoms: cough Respiratory Risk Factors: no cause identified Allergies/Adverse Reactions: Allergies NO KNOWN ALLERGY Allergy (Verified 04/28/16 14:57) Home Medications: Ambulatory Orders Aspirin [Aspirin Adult Low Dose] 81 mg PO DAILY 07/20/16 Atorvastatin Calcium [Lipitor] 40 mg PO BEDTIME 07/20/16 Carvedilol [Coreg] 3.125 mg PO BID 07/20/16 Clonazepam 1 mg PO PRN 07/20/16 Furosemide [Lasix] 40 mg PO DAILY 07/20/16 Lisinopril 5 mg PO BEDTIME 07/20/16 Potassium Chloride [K-Tab] 20 meq PO DAILY 07/20/16 Tamsulosin HCl [Flomax] 0.4 mg PO BEDTIME 07/20/16 Tiotropium [place]-Olodaterol [Stiolto Respimat 2.5-2.5 Mcg/Act] 2.5 mcg IN QAM 07/20/16 Albuterol Sulfate Nebs [Proventil Nebs] 2.5 mg INH Q4HR PRN #30 dose 07/23/16 Benzonatate Perles [Tessalon Perles] 100 mg PO TID PRN #15 07/23/16 Review of Systems - Review of Systems Constitutional: States: chills, malaise EENTM: States: no symptoms reported Respiratory: States: cough, short of breath Cardiology: States: no symptoms reported. Denies: chest pain, palpitations Gastrointestinal/Abdominal: States: no symptoms reported Musculoskeletal: States: no symptoms reported Skin: States: no symptoms reported Neurological: States: no symptoms reported Endocrine: States: no symptoms reported All other Systems: No Change from Baseline Past Medical History (General) - Patient Medical History Hx Seizures: No Hx Stroke: No Hx Asthma: No Hx of COPD: Yes Hx Cardiac Disorders: Yes - History of CABG 2013 Hx Congestive Heart Failure: Yes Hx Pacemaker: No Hx Hypertension: Yes Hx Diabetes: No Hx MRSA: No - Vaccination History Hx Influenza Vaccination: Yes - 2017 Hx Pneumococcal Vaccination: Yes - Social History Hx Tobacco Use: Yes Hx Chewing Tobacco Use: No Hx Alcohol Use: No Hx Substance Use: No Hx Physical Abuse: No Hx Emotional Abuse: No Family Medical History - Family History Mother Family History: No Known Living Status: Still Living Physical Exam - Physical Exam General Appearance: Alert, Ill Appearing, Well Developed, Well Groomed, Well Hydrated, Well Nourished Neck: supple, normal inspection Respiratory: decreased breath sounds, wheezing Cardiovascular/Chest: regular rate, rhythm, no gallop, no murmur Extremity: normal inspection, no pedal edema Neurologic: no motor/sensory deficits, alert, normal mood/affect Skin Exam: normal color, warm/dry Comments: Vital Signs 02/27/17 02/27/17 18:48 19:02 Temperature 98.3 F Pulse Rate [ 94 H Left Radial] Respiratory 30 H 26 H Rate Blood Pressure 159/93 [Left Arm] O2 Sat by Pulse 74 L Oximetry Progress - Progress Progress: 02/27/17 20:14 Discussed with RUIZ Werner, will admit to hospital for pneumonia and COPD exacerbation. Will start Zithromax IV - Results/Orders Results/Orders: Laboratory Tests 02/27/17 02/27/17 19:20 19:20 WBC 8.7 RBC 5.41 Hgb 16.9 Hct 50.5 MCV 93.4 MCH 31.3 H MCHC 33.5 RDW 14.3 Plt Count 186 MPV 8.0 Absolute Neuts (auto) 7.10 H Absolute Lymphs (auto) 0.60 L Absolute Monos (auto) 1.00 H Absolute Eos (auto) 0.00 Absolute Basos (auto) 0.00 Neutrophils % 81.5 H Lymphocytes % 6.8 L Monocytes % 11.1 H Eosinophils % 0.4 L Basophils % 0.2 Sodium 139 Potassium 4.4 Chloride 97 L Carbon Dioxide 35 H Anion Gap 11.4 L BUN 17 Creatinine 1.07 BUN/Creatinine Ratio 15.9 Random Glucose 123 H Serum Osmolality 280.4 Calcium 9.5 Total Bilirubin 4.0 H* AST 23 ALT 20 Alkaline Phosphatase 85 B-Natriuretic Peptide 340.0 H* Serum Total Protein 8.1 Albumin 4.7 Globulin 3.4 Albumin/Globulin Ratio 1.4 - EKG/XRAY/CT XRAY: chest - Patchy lingular opacities per Radiologist Departure - Departure Clinical Impression: COPD with acute exacerbation Pneumonia Qualifiers: Pneumonia type: due to unspecified organism Laterality: left Lung location: upper lobe of lung Qualified Code(s): J18.1 - Lobar pneumonia, unspecified organism Time of Disposition: 20:18 Disposition: Admit Patient Condition: Poor Departure Forms: ED Discharge - Pt. Copy, Patient Portal Self Enrollment Referrals: Neftali Livingston MD [Primary Care Provider] - 1-2 Weeks Home Medications: Ambulatory Orders Aspirin [Aspirin Adult Low Dose] 81 mg PO DAILY 07/20/16 Atorvastatin Calcium [Lipitor] 40 mg PO BEDTIME 07/20/16 Carvedilol [Coreg] 3.125 mg PO BID 07/20/16 Clonazepam 1 mg PO PRN 07/20/16 Furosemide [Lasix] 40 mg PO DAILY 07/20/16 Lisinopril 5 mg PO BEDTIME 07/20/16 Potassium Chloride [K-Tab] 20 meq PO DAILY 07/20/16 Tamsulosin HCl [Flomax] 0.4 mg PO BEDTIME 07/20/16 Tiotropium [place]-Olodaterol [Stiolto Respimat 2.5-2.5 Mcg/Act] 2.5 mcg IN QAM 07/20/16 Albuterol Sulfate Nebs [Proventil Nebs] 2.5 mg INH Q4HR PRN #30 dose 07/23/16 Benzonatate Perles [Tessalon Perles] 100 mg PO TID PRN #15 07/23/16 Decision To Admit - Decistion To Admit Decision to Admit Reason: Admit from ER Decision to Admit Date: 02/27/17 Decision to Admit Time: 20:13
--- NOTE | 2017-02-27 20:06 | RAD ---
Examination: XR CHEST 2 VIEWS dated 02/27/2017 7:06 PM PERSONAL CARE SERVICE PROVIDER History: SOB Comparison: 07/23/2016 Technique: Frontal and lateral views of the chest Findings: Again noted is volume loss of the left lung. Patchy opacities within the lingula. Otherwise no focal airspace consolidation. Blunting of the left costophrenic angle may be secondary to pleural effusion or pleural thickening. Stable cardiac silhouette with sequela of prior median sternotomy. Impression: Patchy lingular opacities may be secondary to atelectasis, pneumonia, or postsurgical change. Stable left-sided volume loss. Electronically signed by: Dmitri Salcido MD 02/27/2017 8:05 PM PERSONAL CARE SERVICE PROVIDER
[2017-02-27] MEDS ORDERED: AZITHROMYCIN IV 500 MG in SODIUM CHLORIDE 0.9% 250ML 250 ML IVPB ONE (20:08)
[2017-02-27] MEDS ORDERED: AZITHROMYCIN IV 500 MG VIAL IVPB ONE (20:34)
[2017-02-27] MEDS ORDERED: SODIUM CHLORIDE 0.9% 250ML 250 ML ONE (20:35)
--- NOTE | 2017-02-27 21:00 | HP ---
SUPERVISING PHYSICIAN: Erick Cr MD CHIEF COMPLAINT: Mild respiratory distress with low 02. HISTORY OF PRESENT ILLNESS: Mr. Marcano is a 71 year-old male patient who presented to the Emergency Department on 02/27/17 with complaints of worsening shortness of breath that started 2 days previous to admission. He noted he had a worsening cough , some chills and having to increase his oxygen usage at home. He normally utilizes a nebulizer as needed at home but in last 24 hours has been using his nebulizer at least 4 times on the day , which was helping somewhat but only lasting a short period time. He noted an change in his sputum in that it was becoming more purulent in appearance. Initially in the Emergency Department he showed to be hypoxic with a nasal cannula at 5 liters with Spo2 of 74% , mild distress using accessary respiratory muscles His vital signs showed him to be afebrile with a temperature of 98.3, pulse 94, blood pressure 159/93. He was given breathing treatments with a good response improving his saturations up to 97% on nasal cannula at 5 liters. He was started on antibiotics after blood cultures were drawn . Radiographic studies completed in the Emergency Department per radiology interpretation showed patchy lingular opacities which could be secondary to atelectasis or pneumonia with blunting of the left costophrenic angle possibly secondary to pleural effusion or pleural thickening. Laboratory studies showed his white count was within normal limits but he did have a left shift. Chemistries: his C02 was 35 , his electrolytes was within normal limits , renal function good with a creatinine 1.07. Lactic acid was 1.1, calcium 9.5, bilirubin elevated at 4.0 but all other liver functions were within normal limits. CPK was 167 with BNP of 340. Amylase and lipase were all within normal limits. The patient now is going to be admitted to the medical/surgical floor for continuation and more aggressive treatment of left-sided pneumonia with a history of chronic obstructive pulmonary disease showing an acute exacerbation and increasing requirements for oxygen to maintain 02 saturation. The patient was admitted in stable condition. PAST MEDICAL HISTORY: 1.. Congestive heart failure, unknown etiology with no current echocardiogram for review. 2. Chronic obstructive pulmonary disease. 3. Cardiac rhythm problems in the past. . . PAST SURGICAL HISTORY: 1. Coronary artery bypass grafting in June of 2013 CURRENT 1. Tessalon Perles 100 mg 3 times a day. 2. Lipitor 40 mg at bedtime. 3. Aspirin 81 mg daily. 4. Albuterol nebulizer 2.5 mg inhaled every 4 hours p.r.n. 5. Tiotropium bromide - Olodaterol 2.5/2.5 mcg qAM. 6. Flomax 4 mg at bedtime. 7. Potassium chloride 20 mg daily. 8. Lisinopril 5 mg at bedtime. 9. Lasix 40 mg daily. 10. Clonazepam 1 mg as needed. 11. Coreg 3.25 mg. ALLERGIES: NO KNOWN DRUG ALLERGIES. FAMILY HISTORY: Positive for renal failure in hs father. 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 He stopped smoking about 4 to 5 months previously after smoking for many years. He denies any alcohol or illicit drug use. REVIEW OF SYSTEMS: CONSTITUTIONAL: He noticed some chills and general malaise. HEENT: No hearing or vision disturbances. CHEST: Notes productive cough, increasing shortness of breath but no hemoptysis. HEART: Denies any chest pain or palpitations. ABDOMEN: Denies any abdominal pain, no nausea, vomiting, diarrhea or constipation. GENITOURINARY; No dysuria, hematuria or other urinary symptoms. EXTREMITIES: Denies any significant pedal edema. NEUROLOGIC: No focal neurological deficits. No headaches. No syncopal episodes. PHYSICAL EXAMINATION: VITAL SIGNS: Initially in the Emergency Department, temperature 98.3, pulse 94 , blood pressure 159/93, respirations 26 to 30 with 02 saturation on nasal cannula at rest at 5 liters showing 74%. After breathing treatment it improved to 97% with a 5 liter flow. Admission weight 85.5 kg. GENERAL: The patient is somewhat unkempt; appears ill but in no acute distress. He is having some difficulties talking in full sentences without pausing. NECK: Supple, non-tender with full range of motion. No jugular venous distention. CHEST: Breath sounds diminished throughout with inspiratory and expiratory wheezing, more prominent on the left than right. CARDIOVASCULAR: Fairly regular rate with no appreciable murmurs, rubs, or gallops. ABDOMEN: Obese, soft, non-tender, positive bowel sounds. EXTREMITIES: No cyanosis, clubbing, or edema. NEUROLOGIC: Alert and oriented x 3. Facial features were symmetrical. Extraocular movements within normal limits. No notable nystagmus. Cranial nerves II through XII grossly intact. No focal or neurological deficits noted. LABORATORY: CBC showed normal white count of 8,700 with hemoglobin 16.9, hematocrit 50.5. Platelet count 186,000, differential did show a left shift. Chemistries showed normal electrolytes with potassium of 4.4. Carbon dioxide elevated at 35, BUN 17, creatinine 1.07, blood sugar 123, lactic acid 1.1, calcium 9.5. Bilirubin elevated at 4 but AST, ALT and alkaline phosphatase were within normal limits. CPK normal at 167 with BNP elevation of 340, amylase and lipase normal at 45 for amylase, lipase at 31. Urinalysis showed to be within normal limits. Influenza A and B by PCR is pending. Blood cultures pending. MICROBIOLOGY: Sputum cultures pending. RADIOLOGY: Chest x-ray 2 view chest compared to 07/23/16 per radiology interpretation noted patchy lingular opacities which could be secondary to atelectasis or pneumonia, stable left-sided volume loss. EKG showed a right bundle branch block with a left jarrod-bifascicular block with no notable acute changes noted compared to EKG done on July 20, 2016. ASSESSMENT: 1. Acute exacerbation of chronic obstructive pulmonary disease with developing left lower lobe pneumonia community acquired with cultures pending with patient started on parenteral antibiotics to include Rocephin and azithromycin. 2. Chronic obstructive pulmonary disease with an acute exacerbation with need for aggressive pulmonary hygiene, oxygen titrated therapy, as patient was hypoxic on admission and needing aggressive bronchodilator treatment and initiation of corticosteroids. 3. Congestive heart failure with elevated beta natriuretic peptide on admission but no information of a recent echocardiogram on admission. 4. History of past cardiac arrhythmias being followed by Dr. Liu with the patient showing Bifascicular block with no acute changes noted on EKG compared to EKG July 20, 2016. 5. Acute bronchitis with increase in purulent sputum with cultures pending. 6. Elevated bilirubin, unknown etiology possible secondary to dehydration, requiring close monitoring with patient having no abdominal pain or chest pain on a Statin but normal CPK. 7. Mild dehydration requiring initiation of IV fluids. PLAN: The patient will be admitted to the medical/surgical floor for initiation of treatment for underlying pneumonia with aggressive pulmonary hygiene. The patient was a former smoker and has had increasing sputum production over the last several months. He does show a left shift but his leukocytosis is minimum and he is afebrile. Therefore, we will initiate antibiotics to continue with Rocephin and azithromycin and monitor clinically. Will anticipate length of stay to be least 2 to 3 days. Will plan to repeat laboratory studies in the morning as well as a chest x-ray. I will start him on Solu-Medrol with a loading dose of 125 mg to followup with 60 mg every 6 hours for four doses. He will be on Protonix for gastric protection. He will be on DVT prophylaxis as per protocol. Will start him on IV fluids to include normal saline with 20 of potassium to run at 80 an hour. Until the patient is showing clinical improvement, will continue to monitor and treat appropriately. Once the patient is clinically stable patient can be discharged to followup with his primary care physician and continuation of treatment in outpatient setting. #[id number] [facility]
[2017-02-27] MEDS ORDERED: ALBUTEROL SULFATE 2.5 MG/3 ML VIAL NEB PRN (21:25)
[2017-02-27] MEDS ORDERED: ACETAMINOPHEN 325 MG TAB PO PRN (21:25)
[2017-02-27] MEDS ORDERED: IV SET AND CAP CHANGE INJ INJ SCH (21:30)
[2017-02-27] MEDS ORDERED: SODIUM CHL 0.9% 50ML MIN-BAG+ 50 ML IVPB ONE (22:16)
[2017-02-27] MEDS ORDERED: cefTRIAXone SODIUM 1 GM VIAL ONE (22:16)
--- NOTE | 2017-02-27 22:19 | PCM.CORE ---
Physician DVT/VTE - Nurse DVT Assessment & Total Each Risk Factor Represents 3 Points: Medical PT with Hx of NM, CHF, Severe infection/sepsis Each Risk Factor Represents 2 Points: Age 60-74 Each Risk Factor Represents 1 Point: Medical PT at Bed Rest Each Risk Factor is 1 Point: Obesity (BMI >25), Serious Lung disease (pnemonia < 1month, COPD, emphysema,etc) DVT Assessment Score: 8 - 5 or more Very High Risk Treatments: Early Ambulation *, Sequential Compression Device Pharmacological: Enoxaparin 40mg SQ Daily
[2017-02-27] MEDS ORDERED: ENOXAPARIN SODIUM 40 MG/0.4 ML SYG SUBCU SCH (22:30)
[2017-02-27] MEDS ORDERED: methylPREDNISolone SODIUM SUC 125 MG/2 ML VIAL IV ONE (22:52)
[2017-02-27] MEDS: SODIUM CHLORIDE 0.9% (FLUSH) 10 ML SYG IV PRN ×2 (23:04→23:32)
[2017-02-27] MEDS: cefTRIAXone SODIUM 1 GM in SODIUM CHL 0.9% 50ML MIN-BAG+ 50 ML IVPB SCH (23:05)
[2017-02-27] MEDS: KCL 20 MEQ/NS 1,000 ML IVS PRN (23:05)
[2017-02-28] MEDS: SODIUM CHLORIDE 0.9% (FLUSH) 10 ML SYG IV PRN ×2 (06:14→20:50)
[2017-02-28] MEDS: PANTOPRAZOLE SODIUM IV 40 MG VIAL IV SCH (06:15)
--- NOTE | 2017-02-28 06:59 | RAD ---
Procedure: XR CHEST 2 VIEWS Exam Date: 02/28/2017 Ordering Provider: Casey Ramirez NP Clinical Indication: Pneumonia Comparison: 02/27/2017 Findings: Residuals of thoracic surgery. Cardiomediastinal silhouette is stable. Focal lung consolidation: Atelectasis and/or infiltrate in the lingula. No new infiltrates. Pleural effusion: Small left pleural effusion versus pleural scarring. Pneumothorax: None Bones and soft tissues: Nonacute Impression: 1. Stable atelectasis and/or infiltrate in the lingula. No new infiltrates. 2. Small left pleural effusion versus pleural scarring. Electronically signed by: Gerber Escobar MD 02/28/2017 6:57 AM [facility]
[2017-02-28] MEDS ORDERED: SODIUM CHLORIDE 0.9% 250ML 250 ML ONE (08:32)
[2017-02-28] MEDS ORDERED: AZITHROMYCIN IV 500 MG VIAL IVPB ONE (08:33)
[2017-02-28] MEDS: IPRATROPIUM/ALBUTEROL 3 ML VIAL NEB SCH ×4 (08:35→20:30)
[2017-02-28] MEDS ORDERED: NON-FORMULARY MEDICATION 1 EA MIS (Potassium Chloride [K-Tab] 20 MEQ) PO SCH (09:00)
[2017-02-28] MEDS: NON-FORMULARY MEDICATION 1 EA MIS (Tiotropium Bromide-Olodaterol [Stiolto Respimat 2.5-2.5 IN SCH (09:39)
[2017-02-28] MEDS: AZITHROMYCIN IV 500 MG in SODIUM CHLORIDE 0.9% 250ML 250 ML IVPB SCH (09:59)
[2017-02-28] MEDS: CARVEDILOL 3.125 MG TAB PO SCH ×2 (10:00→20:48)
[2017-02-28] MEDS: FUROSEMIDE 40 MG TAB PO SCH (10:00)
[2017-02-28] MEDS: ASPIRIN EC 81 MG TAB PO SCH (10:00)
[2017-02-28] MEDS: methylPREDNISolone SODIUM SUC 125 MG/2 ML VIAL IV SCH ×3 (10:02→20:50)
[2017-02-28] MEDS: KCL 20 MEQ/NS 1,000 ML IVS PRN (14:50)
--- NOTE | 2017-02-28 15:27 | PN ---
DATE: 02/28/17 SUPERVISING PHYSICIAN: Erick Cr M.D. SUBJECTIVE: The patient is sitting on the edge of the bed. Says he feels a little bit better than upon admission last night. He continues with some shortness of breath but is not showing any respiratory distress. He remains afebrile. He has had no chest pains or abdominal pains. OBJECTIVE: VITAL SIGNS: Temperature 97.8, pulse 86, blood pressure 114/72, respirations 18, satting 94% on nasal cannula at rest on 3 liters. I's and O's show a positive balance of 196 with 546 in, 350 out. Weight 86.2 kg. CHEST: Lung sounds continue to be coarse throughout and diminished towards the bases with inspiratory wheezing bilaterally. HEART: Regular rate and rhythm. ABDOMEN : Obese but soft with no rebound tenderness. EXTREMITIES: No clubbing, cyanosis or edema. NEUROLOGIC: He is alert and oriented times three. LABORATORY: White count remains within normal limits at 6,200 with differential showing a continued left shift. Hemoglobin 16, hematocrit 47.4, platelet count 167,000. Chemistries show normalized carbon dioxide of 30 which was 35 on admission. Potassium and sodium remain within normal limits. Serum osmolality is 278, glucose 148, calcium 8.9. Bilirubin is down to 2.9 with a direct bilirubin of 0.8 and indirect of 2.1. AST, ALT and alkaline phosphatase remain within normal limits. Urinalysis showed all to be within normal limits. MICROBIOLOGY: Blood cultures remain negative. He had a flu swab for Influenza A and B by PCR which was negative. Gram stain shows moderate WBCs with moderate gram positive cocci, a few gram positive bacilli and a rare gram negative bacilli. Sputum culture is pending. RADIOLOGY: Repeat chest x-ray today per radiology interpretation showed stable atelectasis and/or infiltrate in the lingula. No new infiltrates. There is small left pleural effusion versus pleural scarring noted. ASSESSMENT: 1. Acute exacerbation of chronic obstructive pulmonary disease with left sided pneumonia community acquired with cultures pending with the patient having been started on parenteral antibiotics and showing good response with Rocephin and Azithromycin. 2. Chronic obstructive pulmonary disease with an acute exacerbation secondary to underlying pneumonia requiring aggressive pulmonary hygiene, oxygen titrated therapy with the patient showing some hypoxemia on admission needing aggressive bronchodilator treatments and initiation of corticosteroids. 3. Congestive heart failure with an elevated BNP on admission but no information of recent echocardiogram available at time of admission. 4. History of past cardiac arrhythmias with the patient being followed by Dr. Liu with the patient showing a bifascicular block with no acute changes noted on initial EKG as compared to EKG that was done in 07/20/16 with the patient showing sinus rhythm on the monitor. 5. Acute bronchitis with increasing purulent sputum with pending cultures and the patient initiated on antibiotic therapy again for concerns for bacterial pneumonia as noted in #1. 6. Elevated bilirubin, unknown etiology felt to be possibly secondary to underlying dehydration showing some improvement after IV fluids with the patient having a history of being on statins but showing a normal CPK with the patient having no mention of abdominal pains. 7. Mild dehydration requiring initiation of IV fluids showing improvement. PLAN: Will continue with aggressive pulmonary hygiene and chest percussion therapy with antibiotics to include Rocephin and Azithromycin. Will await sputum cultures to further help target antibiotic therapy. He will remain on corticosteroids as he does have some continued exacerbation of COPD and is requiring bronchodilators and oxygen. He is on DVT prophylaxis as per protocol. He will remain on IV fluids with normal saline with 20 of potassium running at 80 mL an hour for continuation of correcting volume status and underlying dehydration. Will plan to repeat CBC, BNP and a chest x-ray in the morning. Anticipate discharge within the next 24 to 48 hours depending on the patient clinically improving. Until the patient is clinically stable, will continue to monitor and treat appropriately. #[id number] [facility]
[2017-02-28] MEDS ORDERED: LISINOPRIL 5 MG TAB ONE (19:56)
[2017-02-28] MEDS ORDERED: ENOXAPARIN SODIUM 40 MG/0.4 ML SYG SUBCU ONE (19:56)
[2017-02-28] MEDS ORDERED: TAMSULOSIN 0.4 MG CAP ONE (19:56)
[2017-02-28] MEDS ORDERED: SODIUM CHL 0.9% 50ML MIN-BAG+ 50 ML IVPB ONE (20:08)
[2017-02-28] MEDS ORDERED: cefTRIAXone SODIUM 1 GM VIAL ONE (20:08)
[2017-02-28] MEDS: TAMSULOSIN 0.4 MG CAP PO SCH (20:48)
[2017-02-28] MEDS: LISINOPRIL 5 MG TAB PO SCH (20:48)
[2017-02-28] MEDS: ENOXAPARIN SODIUM 40 MG/0.4 ML SYG SUBCU SCH (20:49)
[2017-02-28] MEDS: cefTRIAXone SODIUM 1 GM in SODIUM CHL 0.9% 50ML MIN-BAG+ 50 ML IVPB SCH (21:09)
[2017-03-01] MEDS: methylPREDNISolone SODIUM SUC 125 MG/2 ML VIAL IV SCH (02:39)
[2017-03-01] MEDS: SODIUM CHLORIDE 0.9% (FLUSH) 10 ML SYG IV PRN ×2 (02:39→06:05)
[2017-03-01] MEDS: KCL 20 MEQ/NS 1,000 ML IVS PRN (04:00)
[2017-03-01] MEDS: PANTOPRAZOLE SODIUM IV 40 MG VIAL IV SCH (06:05)
--- NOTE | 2017-03-01 07:30 | RAD ---
Chest two views INDICATION: Pneumonia COMPARISON: February 28, 2017 IMPRESSION: Mild cardiomegaly without overt failure. Mild bilateral posterior pleural thickening/fluid lateral film. Scattered degenerative changes thoracic spine. Prior median sternotomy. Stable elevation left hemidiaphragm. Overall stable chest Electronically signed by: Chele Jaquez MD 03/01/2017 7:29 AM [facility]
[2017-03-01] MEDS: POTASSIUM CHLORIDE 20 MEQ TAB PO SCH (07:34)
[2017-03-01] MEDS ORDERED: SODIUM CHLORIDE 0.9% 250ML 250 ML ONE (08:14)
[2017-03-01] MEDS ORDERED: AZITHROMYCIN IV 500 MG VIAL IVPB ONE (08:15)
[2017-03-01] MEDS: ASPIRIN EC 81 MG TAB PO SCH (08:37)
[2017-03-01] MEDS: CARVEDILOL 3.125 MG TAB PO SCH ×2 (08:37→23:43)
[2017-03-01] MEDS: AZITHROMYCIN IV 500 MG in SODIUM CHLORIDE 0.9% 250ML 250 ML IVPB SCH (08:37)
[2017-03-01] MEDS: methylPREDNISolone SODIUM SUC 40 MG/ML VIAL IV SCH ×3 (08:38→23:56)
[2017-03-01] MEDS: FUROSEMIDE 40 MG TAB PO SCH (08:42)
[2017-03-01] MEDS: SODIUM CHLORIDE 0.9% (FLUSH) 10 ML SYG IV SCH ×2 (08:42→23:46)
[2017-03-01] MEDS: IPRATROPIUM/ALBUTEROL 3 ML VIAL NEB SCH ×4 (08:45→20:00)
[2017-03-01] MEDS: NON-FORMULARY MEDICATION 1 EA MIS (Tiotropium Bromide-Olodaterol [Stiolto Respimat 2.5-2.5 IN SCH (10:39)
[2017-03-01] MEDS ORDERED: LEVALBUTEROL NEBS 1.25 MG/3 ML VIAL NEB ONE ×2 (15:30→23:54)
[2017-03-01] MEDS ORDERED: cefTRIAXone SODIUM 1 GM VIAL ONE (19:29)
[2017-03-01] MEDS ORDERED: SODIUM CHL 0.9% 50ML MIN-BAG+ 50 ML IVPB ONE (19:29)
[2017-03-01] MEDS: TAMSULOSIN 0.4 MG CAP PO SCH (23:44)
[2017-03-01] MEDS: ENOXAPARIN SODIUM 40 MG/0.4 ML SYG SUBCU SCH (23:44)
[2017-03-01] MEDS: LISINOPRIL 5 MG TAB PO SCH (23:45)
[2017-03-01] MEDS: cefTRIAXone SODIUM 1 GM in SODIUM CHL 0.9% 50ML MIN-BAG+ 50 ML IVPB SCH (23:47)
[2017-03-02 06:28] VITALS: BP 134/81; TEMP 97.6
[2017-03-02] MEDS ORDERED: PANTOPRAZOLE SODIUM TAB 40 MG PO SCH (06:30)
[2017-03-02] MEDS ORDERED: LEVALBUTEROL NEBS 1.25 MG/3 ML VIAL NEB ONE (07:08)
[2017-03-02] MEDS: POTASSIUM CHLORIDE 20 MEQ TAB PO SCH (07:47)
[2017-03-02] MEDS ORDERED: predniSONE 20 MG TAB PO SCH (09:00)
[2017-03-02] MEDS ORDERED: SODIUM CHLORIDE 0.9% 250ML 250 ML ONE (10:12)
[2017-03-02] MEDS ORDERED: AZITHROMYCIN IV 500 MG VIAL IVPB ONE (10:13)
[2017-03-02] MEDS: AZITHROMYCIN IV 500 MG in SODIUM CHLORIDE 0.9% 250ML 250 ML IVPB SCH (10:15)
[2017-03-02] MEDS: SODIUM CHLORIDE 0.9% (FLUSH) 10 ML SYG IV SCH (10:15)
[2017-03-02] MEDS: ASPIRIN EC 81 MG TAB PO SCH (10:15)
[2017-03-02] MEDS: FUROSEMIDE 40 MG TAB PO SCH (10:15)
[2017-03-02] MEDS: CARVEDILOL 3.125 MG TAB PO SCH (10:15)
--- NOTE | 2017-03-02 11:48 | RAD ---
EXAM DESCRIPTION: Chest,2 Views CLINICAL HISTORY: pneumonia COMPARISON: March 01, 2017 FINDINGS: Again seen are postoperative changes in the mediastinum. The heart appears slightly enlarged but stable. Mediastinal contours are otherwise unremarkable. There is subsegmental atelectasis or scarring the left lung base, stable. No airspace consolidation or definite pleural effusion. The central bronchovascular markings are slightly indistinct. There is no pneumothorax or acute fracture. IMPRESSION: Stable cardiomegaly with questionable mild central pulmonary vascular congestion. Viral or other atypical infection could have a similar appearance. Electronically signed by: Abelardo Lawler MD 03/02/2017 11:46 AM [facility]
[2017-03-02] MEDS ORDERED: FORMOTEROL INH SCH (12:00)
[2017-03-02] MEDS ORDERED: GLYCOPYRROLATE INH SCH (12:00)
[2017-03-02 12:07] VITALS: O2SAT 93
--- NOTE | 2017-03-02 19:21 | PN ---
DATE: 03/01/17 SUPERVISING PHYSICIAN: NYLA PIERSON MD . SUBJECTIVE: The patient is looking much better today. He is actually able to ambulate around in the room without significant shortness of breath but still requiring oxygen. He remains afebrile. He still continues to have good clearance of his airway with just progressive therapy. OBJECTIVE: VITAL SIGNS: Temperature 97.6, pulse 103, blood pressure 131/80, respirations 16, saturation 93% on nasal cannula at on 3 liters. Weight 86.2 kg. I's and O's show a positive balance of 645. He has had 2 bowel movements and his weight has been stable. CHEST: Lungs are much more aerated today throughout but continue to be diminished towards the bases. There is no wheezing noted nor is there any rhonchi. HEART: Regular rate and rhythm. ABDOMEN: Obese but soft with no rebound tenderness. EXTREMITIES: No clubbing, cyanosis or edema. NEUROLOGIC: He is alert and oriented times three. LABORATORY: White count 12,800, hemoglobin 16, hematocrit 48.1, platelet count 166,000. Differential does show a left shift. Chemistries show normal electrolytes with potassium 4.4, BUN 19, creatinine 0.75, calcium 8.9, bilirubin now down to 1.3. All liver functions remain within normal limits. . MICROBIOLOGY: Sputum culture showed normal rui at 48 hours. Blood cultures remain negative after 48 hours. RADIOLOGY: Repeat chest x-ray 2-view per radiology interpretation showed mild cardiomegaly without any overt failure with mild bilateral pleural thickening fluid. On lateral film was scattered and no change to thoracic spine with overall stable chest. ASSESSMENT: 1. Acute exacerbation of chronic obstructive pulmonary disease with left sided pneumonia community acquired with culture results showing normal rui with the patient having been parenteral antibiotics including Rocephin and Azithromycin and showing good response. 2. Chronic obstructive pulmonary disease with an exacerbation secondary to underlying pneumonia as noted in #1, responding well to aggressive pulmonary hygiene, oxygen therapy with the patient having been initially hypoxic on admission as well as requiring initiations corticosteroids. 3. Congestive heart failure with an elevated BNP on admission but no information of recent echocardiogram available at time of admission with no signs or symptoms of acute exacerbation. 4. History of past cardiac arrhythmias with the patient being followed by Dr. Liu with the patient showing a bifascicular block initially on admission with no acute changes noted from initial EKG as compared to EKG that was done in 5. Acute bronchitis as noted developing to a left-sided pneumonia with increasing purulent sputum with culture results showing normal rui showing good response to antibiotic therapy. 6. Elevated bilirubin, unknown etiology, although felt to be possibly related o some underlying dehydration showing improvement with IV fluids with the patient having a history of being on statins but showing a normal CPK and having no mention abdominal pains requiring further evaluation once discharged. 7. Mild dehydration requiring initiation of IV fluids improved. . PLAN: Will continue with aggressive pulmonary hygiene, chest compression therapy and his antibiotics Rocephin and Azithromycin parenterally. Will order an ambulation study tomorrow and encourage him to increase his activity as he is able to. Anticipate possibly discharging tomorrow if he does show good clinical improvement. Will continue on DVT prophylaxis. He has been sitting a lot at this point and is having good oral intake. I will repeat his CBC and BMP along with a chest x-ray and again anticipate hopefully discharging him tomorrow. Until the, we will continue to monitor and treat appropriately. #[id number] [facility]
--- NOTE | 2017-03-14 19:39 | DS ---
SUPERVISING PHYSICIAN: Dmitri Rosario M.D. DISCHARGE DIAGNOSIS: 1. Acute exacerbation of chronic obstructive pulmonary disease with left sided pneumonia community acquired with culture results showing normal rui with the patient having been parenteral antibiotics including Rocephin and Azithromycin and showing good response. 2. Congestive heart failure with an elevated BNP on admission with no recent echocardiogram available for review on admission with no signs or symptoms of acute exacerbation. 3. History of past cardiac arrhythmias with the patient being followed by Dr. Liu with the patient showing a bifascicular block initially on admission with no acute changes noted from initial EKG as compared to EKG that was done in 4. Acute bronchitis as noted developing to a left-sided pneumonia with increasing purulent sputum with culture results showing normal rui. 5. Elevated bilirubin, unknown etiology, although felt to be possibly related to some underlying dehydration showing improvement with IV fluids with the patient having a history of being on statins but showing a normal CPK and having no mention abdominal pains requiring further evaluation once discharged. 6. Mild dehydration requiring initiation of IV fluids improved. REASON FOR HOSPITALIZATION: Mr. Marcano is a 71 year-old male patient who presented to the Emergency Department on 02/27/17 with complaints of worsening shortness of breath that started 2 days previous to admission. He noted he had a worsening cough , some chills and having to increasingly use his oxygen at home. He normally utilizes a nebulizer as needed at home but in last 24 hours prior to admission had been using his nebulizer at least 4 times a day , which was helping somewhat but only lasting a short period time. He noted a change in his sputum in that it was becoming more purulent in appearance. Initially in the Emergency Department he showed to be hypoxic with a nasal cannula at 5 liters with Spo2 of 74% , mild distress using accessary respiratory muscles. His vital signs showed him to be afebrile with a temperature of 98.3, pulse 94 , blood pressure 159/93. He was given breathing treatments with a good response improving his saturations up to 97% on nasal cannula at 5 liters. He was started on antibiotics after blood cultures were drawn . Radiographic studies completed in the Emergency Department per radiology interpretation showed patchy lingular opacities which could be secondary to atelectasis or pneumonia with blunting of the left costophrenic angle possibly secondary to pleural effusion or pleural thickening. Laboratory studies initially showed his white count to be within normal limits but he did have a left shift. Chemistries showed C02 of 35, electrolytes within normal limits, renal function good with a creatinine 1.07. Lactic acid was normal at 1.1 as well as calcium 9.5, bilirubin was elevated at 4.0 but all other liver functions were within normal limits. CPK was 167 with BNP of 340. Amylase and lipase were all within normal limits. The patient was admitted to the medical/surgical floor for continuation of more aggressive treatment for left-sided pneumonia with a history of chronic obstructive pulmonary disease showing an acute exacerbation requiring increasing need for oxygen to maintain 02 saturation. The patient was admitted in stable condition. LABORATORY STUDIES: White count on admission showed 8,700, at discharge white count was 15,800, however he has been on high dose steroids. A left shift was noted. Hemoglobin and hematocrit were stable at 15.8 and 47.5, platelet count 187,000. Chemistries initially on admission showed sodium 139, potassium 4.9, carbon dioxide 35, anion gap was 11.4, BUN 17, creatinine 1.07 with lactic acid of 1.1, calcium 9.5. Total bilirubin was 4.0 with AST, ALT and alkaline phosphatase within normal limits. BNP was elevated at 340. Amylase and lipase were all within normal limits. After IV fluids and treatment, his electrolytes had normalized. Carbon dioxide was 23, BUN 18, creatinine 0.75, calcium 8.9. Bilirubin had gone down to 1.3. Liver functions all remained within normal limits. Urinalysis showed to be within normal limits. MICROBIOLOGY: Final culture of sputum showed normal rui. He had a negative swab for Influenza A and B by PCR which was negative for both. Blood culture was negative after 5 days. RADIOLOGY: Chest x-ray in the Emergency Department prior to admission showed patchy lingular opacities which may be secondary to atelectasis, pneumonia or postsurgical changes. He had multiple chest x-rays and on 03/02/17 before discharge his final chest x-ray 2 view chest showed stable cardiomegaly with questionable mild central pulmonary congestion. Viral or other atypical infection could have similar appearance. HOSPITAL COURSE: Mr. Marcano was admitted on the Medical/ Surgical floor for treatment of underlying exacerbation of chronic obstructive pulmonary disease with concerns for left sided pneumonia. He was started on antibiotics in the E. R. with Rocephin and Azithromycin which was continued through admission as well as he was started on Solu-Medrol and was titrated to a p.o. dose prior to discharge. He showed good response with aggressive pulmonary hygiene and was felt clinically stable enough to be discharged to followup with outpatient treatment. PLAN: Mr. Marcano was discharged on 03/02/17 with instructions to followup with his primary care provider, Dr. Livingston, as scheduled on 03/09/17. He is to wear his oxygen as instructed and return to the hospital should he have any concerning symptoms. Medications that were continued at discharge included new medication: 1. Azithromycin 500 mg for 2 additional days. 2. Cefdinir 300 mg twice a day, #14. 3. Prednisone tapering dose with 10 mg tablets, 40 mg for 3 days, 30 mg for 3 days, 20 mg for 3 days and 1 tablet for 3 days until gone. All other medications prior to discharge were continued as prior to hospitalization. Diet at discharge was regular diet as tolerated. Activity is increase as tolerated. Condition on discharge was stable and improved. #[id number] [facility]
== END 2017-03-02 13:15 | disposition home or self-care (01) | DRG 190 ==
LOC: ER 18:44 → MS 21:00
PROVIDERS: ADMIT Nurse Practitioner Family; ATTEND Nurse Practitioner Family
DX: J44.0 Chronic obstructive pulmonary disease with (acute) lower respiratory infection (principal); J18.9 Pneumonia, unspecified organism; I45.2 Bifascicular block; E86.0 Dehydration; J44.1 Chronic obstructive pulmonary disease with (acute) exacerbation; E80.6 Other disorders of bilirubin metabolism; J20.9 Acute bronchitis, unspecified; R09.02 Hypoxemia; I50.9 Heart failure, unspecified; E66.9 Obesity, unspecified; Z95.1 Presence of aortocoronary bypass graft; Z79.82 Long term (current) use of aspirin; Z79.899 Other long term (current) drug therapy; Z87.891 Personal history of nicotine dependence; Z68.28 Body mass index [BMI] 28.0-28.9, adult

== ENCOUNTER → 2017-07-20 | Outpatient (CLI) | payer MEDICARE, OTHER | LOC: RESP 13:21 | PROVIDERS: ATTEND Internal Medicine Interventional Cardiology | DX: I48.91 Unspecified atrial fibrillation (principal) ==

== ENCOUNTER → 2018-06-23 | Outpatient (CLI) | payer MEDICARE, OTHER | LOC: GMAH 10:07 | PROVIDERS: ATTEND Family Medicine | DX: E78.2 Mixed hyperlipidemia (principal); Z12.5 Encounter for screening for malignant neoplasm of prostate | CPT/HCPCS: 84443; 84550; G0103 ==

== ENCOUNTER → 2019-04-27 | Outpatient (CLI) | payer MEDICARE, OTHER ==
--- NOTE | 2019-04-28 08:24 | CT ---
EXAM DESCRIPTION: Chest w/Contrast CLINICAL HISTORY: 73 years Male, HEMOPTYSIS TECHNIQUE: This exam was performed according to our departmental dose-optimization program, which includes automated exposure control, adjustment of the mA and/or kV according to patient size and/or use of iterative reconstruction technique. COMPARISON: 03/02/2017 FINDINGS: The thyroid gland is unremarkable. No axillary adenopathy. Median sternotomy/CABG. Dense coronary artery calcifications. No pericardial effusion. No evidence of acute process in the visualized upper abdomen. No mediastinal adenopathy. The pulmonary arteries are grossly unremarkable. No pneumothorax. No pleural effusion. Chronic left basilar pleural thickening. Elevation of the left diaphragm. Chronic left basilar atelectasis/scarring. Centrilobular emphysema with subtle peripheral fibrosis. There are multiple scattered solid noncalcified pulmonary nodules. For reference there is an irregular, spiculated right upper lobe pulmonary nodule measuring 0.9 x 0.7 cm series 4 image 46. Separate reference right upper lobe pulmonary nodule measuring 0.7 x 0.7 cm series 4 image 47. No acute or suspicious osseous abnormality. Scattered degenerative changes present. IMPRESSION: 1. Multiple scattered solid noncalcified pulmonary nodules with the largest reference pulmonary nodule measuring 0.9 cm. According to the most recent Fleischner Society Pulmonary Nodule Guidelines ( DOI: http://dx.doi.org/10.1148/radiol.7951694886 ), for multiple solid nodules measuring greater than 8 mm, recommend initial CT at 3-6 months and then at 18-24 months if no change. 2. Pulmonary emphysema with peripheral fibrosis and chronic left basilar scarring/atelectasis. Electronically signed by: Blaise Erickson MD 04/28/2019 8:22 AM [facility]
== END ==
LOC: LAB.O 10:28
PROVIDERS: ATTEND Family Medicine
DX: R04.2 Hemoptysis (principal); R91.8 Other nonspecific abnormal finding of lung field; J43.9 Emphysema, unspecified; J84.10 Pulmonary fibrosis, unspecified; J98.11 Atelectasis

== ENCOUNTER → 2019-11-14 | Outpatient (CLI) | payer MEDICARE, OTHER | LOC: GMA MATASK 10:32 | PROVIDERS: ATTEND Family Medicine | DX: N40.1 Benign prostatic hyperplasia with lower urinary tract symptoms (principal); E78.2 Mixed hyperlipidemia ==

== ENCOUNTER → 2019-11-28 | Outpatient (CLI) | payer MEDICARE, OTHER ==
--- NOTE | 2019-11-28 14:12 | CT ---
EXAM DESCRIPTION: Chest w/Contrast CLINICAL HISTORY: 74 years Male, CHRONIC OBSTRUCTIVE PULMONARY DISEASE WITH EXACERBATION TECHNIQUE: This exam was performed according to our departmental dose-optimization program, which includes automated exposure control, adjustment of the mA and/or kV according to patient size and/or use of iterative reconstruction technique. COMPARISON: April 27, 2019 FINDINGS: The thyroid gland is unremarkable. No axillary adenopathy. Median sternotomy/CABG. Atherosclerotic plaque in the normal caliber thoracic aorta. Dense coronary artery calcifications. No pericardial effusion. No evidence of acute process in the visualized upper abdomen. No mediastinal adenopathy. The main pulmonary artery is grossly unremarkable. Similar emphysema/fibrosis. No honeycombing. No bronchiectasis. No air trapping. Stable pulmonary nodules. The reference right upper lobe 9 mm pulmonary nodule best seen series 4 image 41. No new pulmonary nodule identified. No focal consolidation. Similar chronic left basilar scarring/volume loss. Interval L1 superior endplate Schmorl's node. No acute or suspicious osseous abnormality. Scattered degenerative changes present. IMPRESSION: 1. No evidence of acute process in the chest. 2. Stable pulmonary nodules. Recommend follow-up chest CT in 18-24 months from the comparison examination April 27, 2019. 3. Similar emphysema/fibrosis. Electronically signed by: Blaise Erickson MD 11/28/2019 2:10 PM CDT
== END | disposition home or self-care (01) ==
LOC: CT 10:05
PROVIDERS: ATTEND Family Medicine
DX: J44.1 Chronic obstructive pulmonary disease with (acute) exacerbation (principal)